=== PATIENT | female | born 1990 | race Two or more races ===

== ENCOUNTER 2016-12-27 07:30 | Inpatient (IN) | payer MEDICAID ==
[2016-12-27] VITALS (13 sets, daily range): BP systolic 131–170; BP diastolic 61–106
[~2016-12-27] VITALS: Ht 165.1 cm; Wt 71.2 kg
[2016-12-27] MEDS: LACTATED RINGER'S 1,000 ML IV SCH ×2 (08:39→22:05)
[2016-12-27 09:24] LABS: Basophils # (auto) 0 uL; Basophils % (auto) 0.3 % (0.0-2.0); CONDITION Y; Eosinophils # (auto) 0 uL; Eosinophils % (auto) 0.3 % (0.0-7.0); Hematocrit 37.9 % (36.0-46.0); Hemoglobin 12.8 g/dL (12.2-16.2); Lymphocytes # (auto) 0.9 uL; Lymphocytes % (auto) 8.2 % (10.0-50.0); Mean Corpuscular Hgb Conc. 33.7 g/dL (32.0-36.0); Mean Corpuscular Volume 92.2 fL (80.0-100.0); Mean Platelet Volume 10.1 fL (7.4-10.4); Monocytes # (auto) 0.6 uL; Monocytes % (auto) 5.4 % (0.0-12.0); Neutrophils # (auto) 9.7 uL; Neutrophils % (auto) 85.8 % (37.0-80.0); Platelet Count (auto) 228 10^3/uL (140-450); Red Cell Distribution Width 15.2 % (11.6-16.0); White Blood Cell 11.3 10^3/uL (4.4-10.8)
[2016-12-27] MEDS ORDERED: PREN-96 PO (09:28)
[2016-12-27] MEDS ORDERED: FERR-7 PO (09:29)
[2016-12-27 09:40] LABS: Albumin 2.7 g/dL (3.4-5.0); BUN/Creatinine Ratio 13.6; Bilirubin, Total 0.6 mg/dL (0.2-1.0); Calcium 9.1 mg/dL (8.5-10.1); Total Protein 7.6 g/dL (6.4-8.2)
[2016-12-27 09:41] LABS: INR 0.93 (0.9-1.15); Partial Thromboplastin Time 30.4 sec (22.64-33.71); Prothrombin Time 10.1 sec (9.37-12.3)
[2016-12-27 09:47] LABS: Urine Bilirubin Negative (Negative); Urine Blood Negative /uL (Negative); Urine Color Yellow (Yellow); Urine Glucose Normal (Normal); Urine Ketone Negative (Negative); Urine Mucus FEW (None Seen); Urine Nitrite Negative (Negative); Urine RBC 6 /hpf (0 - 4); Urine Squamous Epithelial Cell MOD /hpf (<5); Urine Urobilinogen Normal (Negative); Urine pH 5.5 (5.0-8.0)
[2016-12-27] MEDS ORDERED: TERBUTALINE SULFATE 1 MG/ML 1ML VIAL SC ONE ×2 (11:25→11:30)
[2016-12-27] MEDS ORDERED: fentaNYL CITRATE 100 MCG/2 ML VL ONE (12:23)
[2016-12-27] MEDS ORDERED: ceFAZolin 1GM VL IV ONE (12:23)
[2016-12-27] MEDS ORDERED: OXYTOCIN 10 UNIT/ML 10ML VIAL IV ONE (12:23)
[2016-12-27] MEDS ORDERED: LACTATED RINGER'S 1,000 ML IV SCH (14:04)
[2016-12-27] MEDS ORDERED: HYDROmorphone HCL 2 MG/ML VL IV PRN (14:15)
[2016-12-27] MEDS ORDERED: ONDANSETRON HCL 4 MG/2 ML VIAL IV PRN (14:15)
[2016-12-27] MEDS ORDERED: ePHEDrine SULFATE 50 MG/ML AMP IV PRN (14:15)
[2016-12-27] MEDS ORDERED: ONDANSETRON HCL 4 MG/2 ML VIAL IV ONE (14:15)
[2016-12-27] MEDS ORDERED: hydrALAZINE HCL 20 MG/ML VL IV PRN (14:15)
[2016-12-27] MEDS ORDERED: ceFAZolin 1GM/50ML D5W 50 ML IV SCH (14:30)
[2016-12-27] MEDS: HYDROmorphone HCL 2 MG/ML VL IV PRN (15:20)
[2016-12-27] MEDS ORDERED: TETANUS-DIPTH-ACEL PERTUSSIS 0.5ML SYRG IM ONE (17:30)
[2016-12-27] MEDS ORDERED: KETOROLAC TROMETH 30 MG/ML 1ML VIAL IV SCH (18:00)
[2016-12-27] MEDS ORDERED: LACT. RINGERS/OXYTOCIN 20UNITS 1,000 ML IV ONE (19:01)
[2016-12-27] MEDS: ceFAZolin 1GM/50ML D5W 50 ML IV SCH (22:16)
[2016-12-27] MEDS: KETOROLAC TROMETH 30 MG/ML 1ML VIAL IV SCH (22:17)
[2016-12-28] VITALS (9 sets, daily range): BP systolic 129–145; BP diastolic 73–90
[2016-12-28] MEDS: LACTATED RINGER'S 1,000 ML IV SCH ×3 (00:43→14:14)
[2016-12-28] MEDS: HYDROmorphone HCL 2 MG/ML VL IV PRN (01:02)
[2016-12-28] MEDS: KETOROLAC TROMETH 30 MG/ML 1ML VIAL IV SCH (04:53)
[2016-12-28] MEDS: ceFAZolin 1GM/50ML D5W 50 ML IV SCH ×2 (06:00→14:08)
[2016-12-28 06:46] LABS: Basophils # (auto) 0 uL; Basophils % (auto) 0.2 % (0.0-2.0); CONDITION Y; Eosinophils # (auto) 0 uL; Eosinophils % (auto) 0.5 % (0.0-7.0); Hematocrit 33.1 % (36.0-46.0); Lymphocytes # (auto) 0.9 uL; Lymphocytes % (auto) 9.6 % (10.0-50.0); Mean Corpuscular Hemoglobin 30.9 pg (28.0-32.0); Mean Corpuscular Hgb Conc. 33.4 g/dL (32.0-36.0); Mean Corpuscular Volume 92.5 fL (80.0-100.0); Mean Platelet Volume 9.7 fL (7.4-10.4); Monocytes # (auto) 0.6 uL; Monocytes % (auto) 6.1 % (0.0-12.0); Neutrophils # (auto) 7.8 uL; Neutrophils % (auto) 83.6 % (37.0-80.0); Platelet Count (auto) 204 10^3/uL (140-450); Red Cell Distribution Width 15.2 % (11.6-16.0); White Blood Cell 9.3 10^3/uL (4.4-10.8)
[2016-12-28] MEDS ORDERED: IBUPROFEN 800 MG TAB PO PRN (11:00)
[2016-12-28] MEDS ORDERED: BISACODYL 10 MG RECT SUPP PR PRN (11:00)
[2016-12-28] MEDS: DOCUSATE CALCIUM 240 MG CAP PO SCH (11:07)
[2016-12-28] MEDS: DOCUSATE SOD 100 MG CAP PO SCH ×2 (11:08→22:01)
[2016-12-28] MEDS: HYDROcodone-ACET 10/325MG TAB PO PRN ×3 (11:08→22:01)
[2016-12-29] VITALS (7 sets, daily range): BP systolic 134–149; BP diastolic 78–90
[2016-12-29] MEDS ORDERED: TETANUS-DIPTH-ACEL PERTUSSIS 0.5ML SYRG IM ONE (07:04)
[2016-12-29] MEDS: HYDROcodone-ACET 10/325MG TAB PO PRN ×3 (07:07→17:56)
[2016-12-29] MEDS: DOCUSATE CALCIUM 240 MG CAP PO SCH (10:00)
[2016-12-29] MEDS: DOCUSATE SOD 100 MG CAP PO SCH ×2 (10:28→22:03)
[2016-12-30 03:51] VITALS: BP 133/91
[2016-12-30] MEDS: HYDROcodone-ACET 10/325MG TAB PO PRN (07:16)
[2016-12-30 08:00] VITALS: BP 145/95
[2016-12-30 12:00] VITALS: BP 142/95
== END 2016-12-30 13:45 | disposition home or self-care (01) | DRG 540 ==
LOC: OBSVTOIN 07:30 → LDRP 07:30
PROVIDERS: ADMIT Obstetrics & Gynecology; ATTEND Obstetrics & Gynecology
PROC: 10D00Z1 Extraction of Products of Conception, Low, Open Approach (ICD-10-PCS; principal; 2016-12-27 12:33)
DX: O34.211 Maternal care for low transverse scar from previous cesarean delivery (principal); Z37.0 Single live birth; Z3A.39 39 weeks gestation of pregnancy
CPT/HCPCS: 36415; 51702; 59025; 80053; 81001; 85025; 85610; 85730; 86850; 86900; 86901; 90715; 94762; 96361; 96366; 96374; 96375; J0690; J1885; J2590

== ENCOUNTER 2020-11-05 07:37 | Emergency (ER) | payer MEDICAID, OTHER ==
[~2020-11-05] VITALS: Ht 167.6 cm; Wt 104.3 kg
[~2020-11-05 07:37] MED LIST: FERR-7 PO; PREN-96 PO
[2020-11-05 08:46] VITALS: BP 145/94
== END 2020-11-05 08:54 | disposition home or self-care (01) ==
LOC: ER 07:37
DX: J03.90 Acute tonsillitis, unspecified (principal)